=== PATIENT | female | born 1980 | race Caucasian/White ===

== ENCOUNTER 2018-01-15 08:58 | Day surgery (SDC) | payer OTHER ==
[~2018-01-15] VITALS: Ht 170.2 cm; Wt 86.3 kg
[2018-01-15] MEDS ORDERED: SILVER NITRATE STICK TP ONE ×2 (09:37→11:10)
[2018-01-15] MEDS ORDERED: MISOPROSTOL 200 MCG TABLET ONE (09:37)
[2018-01-15] MEDS ORDERED: OXYTOCIN 10 UNITS/ML, 1ML ONE (09:37)
[2018-01-15] MEDS ORDERED: METHYLERGONOVINE 0.2 MG/ML IM ONE (09:38)
[2018-01-15] MEDS ORDERED: HYDROmorphone 1 MG/ML, 1ML IV PRN ×3 (10:30→14:00)
[2018-01-15] MEDS ORDERED: OXYcodone 5 MG/5 ML ORAL.SOL UDC PO PRN ×2 (10:30→12:00)
[2018-01-15] MEDS ORDERED: MEPERIDINE/PF 25MG/0.5ML IVPush PRN ×2 (10:30→12:00)
[2018-01-15] MEDS ORDERED: PLEASE ENTER HEIGHT AND WEIGHT MC SCH (10:30)
[2018-01-15] MEDS ORDERED: ACETAMINOPHEN 325 MG TABLET PO PRN ×2 (10:30→12:00)
[2018-01-15] MEDS ORDERED: METOCLOPRAMIDE 5 MG/ML, 2ML IV PRN (10:30)
[2018-01-15] MEDS ORDERED: DIAZEPAM 5 MG/ML, 2ML IVPush PRN (10:30)
[2018-01-15] MEDS ORDERED: FENTANYL PF 100 MCG/2ML IV PRN ×2 (10:30→12:00)
[2018-01-15] MEDS ORDERED: DIPHENHYDRAMINE 50 MG/ML, 1ML IVPush PRN (10:30)
[2018-01-15] MEDS ORDERED: METOCLOPRAMIDE 5 MG/ML, 2ML IVPush PRN (11:00)
[2018-01-15] MEDS ORDERED: FENTANYL PF 100 MCG/2ML ONE ×2 (11:25→11:43)
[2018-01-15] MEDS ORDERED: MIDAZOLAM 1 MG/ML, 2ML ONE (11:25)
[2018-01-15] MEDS ORDERED: DOXYCYCLINE 100 MG ONE (11:28)
[2018-01-15] MEDS ORDERED: KETOROLAC 30 MG/1 ML ONE ×2 (11:39→11:55)
[2018-01-15] MEDS ORDERED: ONDANSETRON 2MG/ML, 2ML ONE ×3 (11:39→11:55)
[2018-01-15] MEDS ORDERED: DEXAMETHASONE 4 MG/ML, 1ML ONE ×3 (11:39→11:55)
[2018-01-15] MEDS ORDERED: PROPOFOL 10 MG/ML, 20ML ONE (11:55)
[2018-01-15] MEDS ORDERED: LIDOCAINE-MPF 2% ,5ML ONE (11:55)
[2018-01-15] MEDS ORDERED: LABETALOL 5MG/ML, 20ML IV PRN (12:00)
[2018-01-15] MEDS ORDERED: hydrALAzine 20 MG/ML, 1ML IV PRN (12:00)
[2018-01-15] MEDS ORDERED: HALOPERIDOL 5 MG/ML IV PRN (12:00)
[2018-01-15] MEDS ORDERED: PROMETHAZINE 25 MG/ML, 1ML IV PRN (12:00)
[2018-01-15] MEDS ORDERED: LORazepam 2 MG/ML, 1ML IVPush PRN (12:00)
[2018-01-15] MEDS ORDERED: OXYcodone 5 MG/5 ML ORAL.SOL UDC ONE (12:25)
[2018-01-15] MEDS ORDERED: HYDR-3240 PO (13:47)
[2018-01-15] MEDS ORDERED: METH0.2T45 PO (13:48)
[2018-01-15] MEDS ORDERED: DOXY100T PO (13:49)
[2018-01-15] MEDS ORDERED: LACTATED RINGERS 500 ML IV ONE (14:00)
[2018-01-15] MEDS ORDERED: LACTATED RINGERS 1,000 ML IV SCH ×2 (14:00)
[2018-01-15] MEDS ORDERED: ONDANSETRON 2MG/ML, 2ML IV PRN (14:00)
[2018-01-15] MEDS ORDERED: HYDROcodone/APAP 5/325 TABLET PO PRN (14:00)
== END 2018-01-15 14:20 | disposition home or self-care (01) ==
LOC: OR 08:58 → 4NOR 09:05 → OR 14:20
PROVIDERS: ATTEND Obstetrics & Gynecology
DX: O02.1 Missed abortion (principal); F32.9 Major depressive disorder, single episode, unspecified; G43.909 Migraine, unspecified, not intractable, without status migrainosus; Z98.890 Other specified postprocedural states; Z79.899 Other long term (current) drug therapy; Z88.1 Allergy status to other antibiotic agents
CPT/HCPCS: 59820; 72040; 88305; J1100; J1885; J2210; J2250; J2405; J2704; J3010; J3490; G0378; J2590

== ENCOUNTER 2019-02-22 11:43 | Outpatient (CLI) | payer OTHER ==
[~2019-02-22] VITALS: Ht 170.2 cm; Wt 100.0 kg
[~2019-02-22 11:43] MED LIST: DOXY100T PO; ENOX40SY4 SQ; HYDR-3240 PO; HYDR-3653 PO; METH0.2T45 PO; PREN1TAB60 PO
[2019-02-22 12:33] VITALS: BP 118/65
[2019-02-22 13:47] LABS: MICROSCOPIC INDICATED
== END 2019-02-22 14:24 | disposition home or self-care (01) ==
LOC: LDOP 11:43
PROVIDERS: ATTEND Obstetrics & Gynecology
DX: O26.893 Other specified pregnancy related conditions, third trimester (principal); R10.9 Unspecified abdominal pain; Z88.5 Allergy status to narcotic agent; Z3A.37 37 weeks gestation of pregnancy
CPT/HCPCS: 59025; 81001; 99211; G0463

== ENCOUNTER 2019-02-22 17:43 | Inpatient (IN) | payer OTHER ==
[~2019-02-22] VITALS: Ht 170.2 cm; Wt 100.0 kg
[2019-02-22] MEDS ORDERED: AMPICILLIN 2 GM in SODIUM CHLORIDE 0.9% 100 ML IVPB STA (23:18)
[2019-02-22] MEDS ORDERED: OXYTOCIN 30U/ 0.9% NaCL 500ML 500 ML IV ONE (23:18)
[2019-02-22] MEDS ORDERED: OXYTOCIN 30U/ 0.9% NaCL 500ML 500 ML IV PRN (23:18)
[2019-02-22] MEDS ORDERED: D5%-LACTATED RINGERS 1,000 ML IV SCH (23:18)
[2019-02-22] MEDS ORDERED: FENTANYL PF 100 MCG/2ML IV PRN (23:30)
[2019-02-22] MEDS ORDERED: FENTANYL PF 100 MCG/2ML IVPush PRN (23:30)
[2019-02-22] MEDS ORDERED: ONDANSETRON 2MG/ML, 2ML IVPush PRN (23:30)
[2019-02-22] MEDS ORDERED: TERBUTALINE 1 MG/ML, 1ML SQ PRN (23:30)
[2019-02-22] MEDS ORDERED: TERBUTALINE 1 MG/ML, 1ML IVPush PRN (23:30)
[2019-02-22] MEDS ORDERED: OXYTOCIN 30U/ 0.9% NaCL 500ML 500 ML ONE (23:49)
[2019-02-22 23:55] LABS: BASOPHILS # (AUTO) 0.09 x10^3/uL (0-0.1); BASOPHILS % (AUTO) 1 % (0-1); EOSINOPHILS # (AUTO) 0.14 x10^3/uL (0-0.4); EOSINOPHILS % (AUTO) 2 % (1-7); LYMPHOCYTES # (AUTO) 2.51 x10^3/uL (1-3.4); LYMPHOCYTES % (AUTO) 26 % (22-44); MD NO; MEAN CORPUSCULAR HEMOGLOBIN 26.3 pg (27.0-34.8); MEAN CORPUSCULAR VOLUME 79.5 fL (80-100); MEAN PLATELET VOLUME 7.3 fL (7.4-10.4); MONOCYTES # (AUTO) 0.71 x10^3/uL (0.2-0.8); MONOCYTES % (AUTO) 7 % (2-9); NEUTROPHILS % (AUTO) 64 % (42-75); PLATELET COUNT 352 x10^3/uL (130-400); RED BLOOD COUNT 4.59 x10^6/uL (3.82-5.3); RED CELL DISTRIBUTION WIDTH 16.2 % (9.6-15.2)
[2019-02-23] MEDS ORDERED: NEWBORN KIT ONE (00:10)
[2019-02-23] MEDS: LACTATED RINGERS 1,000 ML IV SCH ×2 (00:22→06:38)
[2019-02-23] MEDS: AMPICILLIN 1 GM in SODIUM CHLORIDE 0.9% 50 ML IVPB SCH ×2 (04:00→08:04)
[2019-02-23] MEDS ORDERED: ACETAMINOPHEN 500 MG TABLET ONE (07:55)
[2019-02-23] MEDS ORDERED: ACETAMINOPHEN 500 MG TABLET PO ONE (08:00)
[2019-02-23 11:09] LABS: INTERNATIONAL NORMALIZED RATIO 0.89 (0.93-1.1); PROTHROMBIN TIME 9.4 Seconds (9.6-11.5)
[2019-02-23] MEDS ORDERED: MISOPROSTOL 200 MCG TABLET ONE (11:51)
[2019-02-23] MEDS ORDERED: FENTANYL PF 100 MCG/2ML ONE (11:51)
[2019-02-23] MEDS: OXYTOCIN 30U/ 0.9% NaCL 500ML 500 ML IV SCH ×2 (12:14→22:14)
[2019-02-23] MEDS ORDERED: OXYTOCIN 30U/ 0.9% NaCL 500ML 500 ML ONE (12:24)
[2019-02-23] MEDS ORDERED: OXYcodone IR 5MG TABLET PO PRN ×2 (12:30)
[2019-02-23] MEDS ORDERED: SIMETHICONE 80 MG CHEW TAB PO PRN (12:30)
[2019-02-23] MEDS ORDERED: MISOPROSTOL 200 MCG TABLET PR ONE (12:30)
[2019-02-23] MEDS ORDERED: METHYLERGONOVINE 0.2 MG/ML IM PRN (12:30)
[2019-02-23] MEDS ORDERED: OXYcodone/APAP 5/325MG TABLET PO PRN (12:30)
[2019-02-23] MEDS ORDERED: ONDANSETRON 2MG/ML, 2ML IV PRN (12:30)
[2019-02-23] MEDS ORDERED: ACETAMINOPHEN 325 MG TABLET PO PRN ×2 (12:30)
[2019-02-23] MEDS ORDERED: IBUPROFEN 600 MG TABLET ONE (13:03)
[2019-02-23] MEDS: IBUPROFEN 600 MG TABLET PO PRN ×2 (13:04→19:08)
[2019-02-23 14:45] VITALS: BP 119/75
[2019-02-23 18:04] VITALS: BP 118/60
[2019-02-23 19:35] VITALS: BP 114/74
[2019-02-23 19:51] LABS: BASOPHILS # (AUTO) 0.05 x10^3/uL (0-0.1); BASOPHILS % (AUTO) 0 % (0-1); EOSINOPHILS # (AUTO) 0.07 x10^3/uL (0-0.4); EOSINOPHILS % (AUTO) 1 % (1-7); LYMPHOCYTES # (AUTO) 1.62 x10^3/uL (1-3.4); LYMPHOCYTES % (AUTO) 13 % (22-44); MD NO; MEAN CORPUSCULAR HEMOGLOBIN 26.3 pg (27.0-34.8); MEAN CORPUSCULAR HGB CONC 32.9 g/dL (32.4-35.8); MEAN CORPUSCULAR VOLUME 80.1 fL (80-100); MEAN PLATELET VOLUME 7.3 fL (7.4-10.4); MONOCYTES # (AUTO) 0.53 x10^3/uL (0.2-0.8); MONOCYTES % (AUTO) 4 % (2-9); NEUTROPHILS # (AUTO) 10.56 x10^3/uL (1.8-6.8); NEUTROPHILS % (AUTO) 82 % (42-75); PLATELET COUNT 338 x10^3/uL (130-400); RED CELL DISTRIBUTION WIDTH 15.9 % (9.6-15.2)
[2019-02-23] MEDS: DOCUSATE 100 MG CAPSULE PO PRN (20:22)
[2019-02-23] MEDS: OXYcodone/APAP 5/325MG TABLET PO PRN (20:23)
[2019-02-23 22:25] VITALS: BP 111/73
[2019-02-23] MEDS ORDERED: ENOXAPARIN 40 MG/0.4 ML SQ SCH (23:45)
[2019-02-24] MEDS: OXYcodone/APAP 5/325MG TABLET PO PRN ×2 (04:01→11:05)
[2019-02-24] MEDS: IBUPROFEN 600 MG TABLET PO PRN ×2 (04:01→09:35)
[2019-02-24 04:15] VITALS: BP 117/67
[2019-02-24] MEDS: OXYTOCIN 30U/ 0.9% NaCL 500ML 500 ML IV SCH (08:14)
[2019-02-24 08:40] VITALS: BP 115/76
[2019-02-24] MEDS ORDERED: FLUOXETINE HCL 20 MG CAPSULE PO SCH (09:00)
[2019-02-24] MEDS ORDERED: PRENATAL VIT/IRON/FA 1 EACH TABLET PO SCH (09:00)
[2019-02-24] MEDS: DOCUSATE 100 MG CAPSULE PO PRN (09:35)
[2019-02-24] MEDS ORDERED: IBUP-1222 PO (12:09)
[2019-02-24] MEDS ORDERED: OXYC-302 PO (12:09)
[2019-02-24] MEDS ORDERED: FLUO20TA25 PO (12:10)
[2019-02-24] MEDS ORDERED: DIPH,PERTUSS(ACELL),TET VAC/PF NC IM-VACC ONE (12:30)
== END 2019-02-24 13:10 | disposition home or self-care (01) | DRG 806 ==
LOC: LDIP 23:10 → 2NW 02-23 14:09
PROVIDERS: ADMIT Obstetrics & Gynecology; ATTEND Obstetrics & Gynecology
PROC: 10E0XZZ Delivery of Products of Conception, External Approach (ICD-10-PCS; principal; 2019-02-23)
PROC: 0KQM0ZZ Repair Perineum Muscle, Open Approach (ICD-10-PCS; 2019-02-23)
PROC: 10907ZC Drainage of Amniotic Fluid, Therapeutic from Products of Conception, Via Natural or Artificial Opening (ICD-10-PCS; 2019-02-23)
DX: O99.12 Other diseases of the blood and blood-forming organs and certain disorders involving the immune mechanism complicating childbirth (principal); D68.51 Activated protein C resistance; Z37.0 Single live birth; O99.354 Diseases of the nervous system complicating childbirth; O70.1 Second degree perineal laceration during delivery; F32.9 Major depressive disorder, single episode, unspecified; O99.343 Other mental disorders complicating pregnancy, third trimester; G43.909 Migraine, unspecified, not intractable, without status migrainosus; F41.9 Anxiety disorder, unspecified; O72.1 Other immediate postpartum hemorrhage; Z3A.37 37 weeks gestation of pregnancy; Z98.1 Arthrodesis status; Z88.8 Allergy status to other drugs, medicaments and biological substances; Z23 Encounter for immunization
CPT/HCPCS: 36415; 82803; 85025; 85610; 85730; 86592; 86850; 86900; 86923; 90715; G0378; J0290; J1650; J3010; J2590; J7120